=== PATIENT | female | born 1995 | race Caucasian/White ===

== ENCOUNTER 2017-05-06 15:33 | Emergency (ER) | payer OTHER ==
[2017-05-06 18:00] LABS: BILIRUBIN NEGATIVE (NEGATIVE); BLOOD TRACE-INTACT Ery/uL (NEGATIVE); CLARITY CLEAR (CLEAR); COLOR YELLOW (YELLOW); GLUCOSE (U) NORMAL (NORMAL); KETONE (U) NEGATIVE (NEGATIVE); LEUKOCYTES NEGATIVE Leu/uL (NEGATIVE); NITRITE NEGATIVE (NEGATIVE); PROTEIN NEGATIVE (NEGATIVE); SPECIFIC GRAVITY 1.015 (1.001-1.030); UROBILINOGEN 0.2 mg/dL (0.2-1.0)
[2017-05-06 18:09] LABS: BACTERIA TRACE; URINARY WBC RARE
[2017-05-06 18:17] LABS: BASOPHIL 0.3 % (0-2); EOSINOPHIL 0.5 % (0-5); HCT 41.3 % (37.0-47.0); HGB 14.3 g/dl (12.5-16.0); MCH 30.2 pg (25.0-31.0); MCHC 34.6 g/dL (32.0-36.0); MCV 87.1 fL (78.0-100.0); MONOCYTE 5.3 % (0-12); NEUTROPHIL 73.9 % (41-80); PLT 297 K/uL (150-400); RBC 4.74 M/uL (4.20-5.40); RDW 12.4 % (11.5-14.0); WBC 9.9 K/uL (4.0-10.5)
[2017-05-06 18:22] LABS: ALBUMIN 4.2 g/dL (3.5-5.0); BILIRUBIN - TOTAL 0.6 mg/dL (0.1-1.0); CREATININE 0.7 mg/dL (0.5-1.0); GLOBULIN (CALCULATION) 3.5 g/dL (2.2-4.2); POTASSIUM 3.9 mmol/L (3.5-5.1); TOTAL PROTEIN 7.7 g/dL (6.4-8.3)
== END 2017-05-06 19:47 | disposition home or self-care (01) ==
LOC: FER 15:33
PROVIDERS: Internal Medicine
DX: R51 Headache (principal); R20.2 Paresthesia of skin; Z88.1 Allergy status to other antibiotic agents; Z88.5 Allergy status to narcotic agent; Z79.84 Long term (current) use of oral hypoglycemic drugs
CPT/HCPCS: 36415; 70450; 80053; 81001; 84703; 85025; J1885; J2765

== ENCOUNTER 2021-01-08 12:01 | Emergency (ER) | payer OTHER ==
[~2021-01-08 12:01] MED LIST: FIORICET1 EACH PO; FLEXERIL10 MG PO; IBUPROFEN800 M1 PO; IBUPROFEN800 MG PO; LIBRAX CAPSULE1 EACH PO; MEDROL 4MG DOSEP4 MG PO; METRONIDAZOLE500 MG PO; MOTRIN600 MG PO; NORCO 5-325 TA1 EACH PO; PROZAC20 MG PO; ZOFRAN ODT4 MG PO/SL; ZOFRAN4 MG PO; ZYRTEC10 M3 PO; mirena iud
[2021-01-08 14:43] LABS: BASOPHIL 0.8 % (0-2); EOSINOPHIL 0.8 % (0-5); HCT 41.4 % (37.0-47.0); HGB 13.8 g/dl (12.5-16.0); LYMPHOCYTE 41.2 % (15-48); MCH 28.3 pg (25.0-31.0); MCHC 33.3 g/dL (32.0-36.0); MCV 84.8 fL (78.0-100.0); MONOCYTE 4.7 % (0-12); MPV 10.2 fL (6.0-9.5); NEUTROPHIL 52.3 % (41-80); NRBC 0; PLT 292 K/uL (150-400); RBC 4.88 M/uL (4.20-5.40); RDW 13.1 % (11.5-14.0); WBC 5.1 K/uL (4.0-10.5)
[2021-01-08 14:56] LABS: BILIRUBIN NEGATIVE (NEGATIVE); BLOOD NEGATIVE Ery/uL (NEGATIVE); CLARITY CLEAR (CLEAR); COLOR YELLOW (YELLOW); GLUCOSE (U) NORMAL (NORMAL); LEUKOCYTES TRACE Leu/uL (NEGATIVE); NITRITE NEGATIVE (NEGATIVE); PROTEIN NEGATIVE (NEGATIVE); SPECIFIC GRAVITY 1.025 (1.001-1.030); UROBILINOGEN 0.2 mg/dL (0.2-1.0); pH 6.5 (5.0-9.0)
[2021-01-08 15:00] LABS: BUN/CREAT RATIO (CALC) 18.8 RATIO; CREATININE 0.69 mg/dL (0.51-0.95); POTASSIUM 3.6 mmol/L (3.5-5.1)
[2021-01-08 15:06] LABS: BACTERIA 1+
[2021-01-08] MEDS ORDERED: IBUPROFEN800 MG PO (17:33)
== END 2021-01-08 17:36 | disposition home or self-care (01) ==
LOC: FER 12:01
PROVIDERS: Nurse Practitioner
DX: H53.8 Other visual disturbances (principal); R51.9 Headache, unspecified; R42 Dizziness and giddiness; F17.290 Nicotine dependence, other tobacco product, uncomplicated; Z86.69 Personal history of other diseases of the nervous system and sense organs; Z88.5 Allergy status to narcotic agent; Z88.6 Allergy status to analgesic agent; Z88.1 Allergy status to other antibiotic agents
CPT/HCPCS: 36415; 70450; 80048; 81001; 85025; 93005

== ENCOUNTER 2021-02-12 10:54 | Emergency (ER) | payer OTHER ==
[2021-02-12 14:37] LABS: BILIRUBIN NEGATIVE (NEGATIVE); BLOOD NEGATIVE Ery/uL (NEGATIVE); CLARITY CLEAR (CLEAR); COLOR YELLOW (YELLOW); GLUCOSE (U) NORMAL (NORMAL); LEUKOCYTES TRACE Leu/uL (NEGATIVE); NITRITE NEGATIVE (NEGATIVE); PROTEIN TRACE (LOW) mg/dL (NEGATIVE); SPECIFIC GRAVITY 1.025 (1.001-1.030); UROBILINOGEN 0.2 mg/dL (0.2-1.0)
[2021-02-12 14:38] LABS: BASOPHIL 0.7 % (0-2); EOSINOPHIL 0.9 % (0-5); HCT 41.5 % (37.0-47.0); HGB 13.8 g/dl (12.5-16.0); LYMPHOCYTE 34.4 % (15-48); MCH 28.9 pg (25.0-31.0); MCHC 33.3 g/dL (32.0-36.0); MCV 86.8 fL (78.0-100.0); MONOCYTE 7.2 % (0-12); MPV 10.8 fL (6.0-9.5); NEUTROPHIL 56.6 % (41-80); NRBC 0; PLT 274 K/uL (150-400); RBC 4.78 M/uL (4.20-5.40); RDW 13.3 % (11.5-14.0); WBC 5.7 K/uL (4.0-10.5)
[2021-02-12 14:51] LABS: ALBUMIN 4.2 g/dL (3.4-5.0); BILIRUBIN - TOTAL 1.3 mg/dL (0.2-1.0); BUN/CREAT RATIO (CALC) 9.7 RATIO; CREATININE 0.72 mg/dL (0.51-0.95); GLOBULIN (CALCULATION) 4.3 g/dL; TOTAL PROTEIN 8.5 g/dL (6.4-8.2)
[2021-02-12 14:51] LABS: BACTERIA 1+; URINARY WBC 20-50
[2021-02-12] MEDS ORDERED: KEFLEX250 MG PO (21:39)
[2021-02-12] MEDS ORDERED: PERCOCET 5-3251 EACH PO (21:39)
[2021-02-12] MEDS ORDERED: ZOFRAN4 M1 PO (21:39)
[2021-02-12] MEDS ORDERED: AUGMENTIN 875-1 EACH PO (21:49)
== END 2021-02-12 22:10 | disposition home or self-care (01) ==
LOC: FER 10:54
PROVIDERS: Emergency Medicine
DX: N39.0 Urinary tract infection, site not specified (principal); E87.6 Hypokalemia; F17.200 Nicotine dependence, unspecified, uncomplicated; Z90.49 Acquired absence of other specified parts of digestive tract; Z88.5 Allergy status to narcotic agent; Z88.1 Allergy status to other antibiotic agents
CPT/HCPCS: 36415; 76830; 80053; 81001; 83690; 85025; 87088; J1170; J2405; J7030; Q9967

== ENCOUNTER 2021-04-10 10:37 | Emergency (ER) | payer OTHER ==
[~2021-04-10 10:37] MED LIST changes: +AUGMENTIN 875-1 EACH PO; +KEFLEX250 MG PO; +PERCOCET 5-3251 EACH PO; +ZOFRAN4 M1 PO
[2021-04-10 12:26] LABS: CORONAVIRUS 2019 SARS-COV-2 NEGATIVE (NEGATIVE); INFLUENZA A NAA NEGATIVE (NEGATIVE)
== END 2021-04-10 15:31 | disposition left against medical advice (07) ==
LOC: FER 10:37
PROVIDERS: Internal Medicine
DX: Z53.8 Procedure and treatment not carried out for other reasons (principal)
CPT/HCPCS: U0002

== ENCOUNTER 2021-06-19 22:41 | Emergency (ER) | payer OTHER ==
[2021-06-19 22:58] LABS: BASOPHIL 0.4 % (0-2); EOSINOPHIL 1.1 % (0-5); HCT 39.6 % (37.0-47.0); HGB 13.4 g/dl (12.5-16.0); LYMPHOCYTE 39.7 % (15-48); MCH 29.8 pg (25.0-31.0); MCHC 33.8 g/dL (32.0-36.0); MCV 88.2 fL (78.0-100.0); MONOCYTE 5.9 % (0-12); MPV 10.2 fL (6.0-9.5); NEUTROPHIL 52.8 % (41-80); NRBC 0; PLT 304 K/uL (150-400); RBC 4.49 M/uL (4.20-5.40); RDW 12.3 % (11.5-14.0); WBC 7.1 K/uL (4.0-10.5)
[2021-06-19 23:21] LABS: ALBUMIN 3.8 g/dL (3.4-5.0); BILIRUBIN - TOTAL 0.5 mg/dL (0.2-1.0); BUN/CREAT RATIO (CALC) 17.2 RATIO; CREATININE 0.64 mg/dL (0.51-0.95); GLOBULIN (CALCULATION) 3.7 g/dL; POTASSIUM 3.7 mmol/L (3.5-5.1); TOTAL PROTEIN 7.5 g/dL (6.4-8.2)
== END 2021-06-20 00:05 | disposition home or self-care (01) ==
LOC: FER 22:41
PROVIDERS: Emergency Medicine
DX: R07.89 Other chest pain (principal); F17.200 Nicotine dependence, unspecified, uncomplicated; Z88.6 Allergy status to analgesic agent; Z88.1 Allergy status to other antibiotic agents
CPT/HCPCS: 36415; 71045; 80053; 84484; 85025; 85379; 93005

== ENCOUNTER 2021-07-31 21:48 | Day surgery (SDCO) | payer OTHER ==
[~2021-07-31] VITALS: Ht 165.1 cm; Wt 87.1 kg
[2021-07-31 23:41] LABS: BASOPHIL 0.8 % (0-2); EOSINOPHIL 1.3 % (0-5); HCT 40.5 % (37.0-47.0); HGB 13.8 g/dl (12.5-16.0); MCH 30.1 pg (25.0-31.0); MCHC 34.1 g/dL (32.0-36.0); MCV 88.4 fL (78.0-100.0); MPV 11.2 fL (6.0-9.5); NEUTROPHIL 54.7 % (41-80); NRBC 0; PLT 223 K/uL (150-400); RBC 4.58 M/uL (4.20-5.40); RDW 12.3 % (11.5-14.0); WBC 9.5 K/uL (4.0-10.5)
[2021-08-01 00:07] LABS: LACTIC ACID 0.9 mmol/L (0.4-1.9)
[2021-08-01 00:13] LABS: ALBUMIN 3.8 g/dL (3.4-5.0); BILIRUBIN - TOTAL 0.4 mg/dL (0.2-1.0); BUN/CREAT RATIO (CALC) 21.9 RATIO; CREATININE 0.64 mg/dL (0.51-0.95); GLOBULIN (CALCULATION) 3.8 g/dL; POTASSIUM 3.9 mmol/L (3.5-5.1); TOTAL PROTEIN 7.6 g/dL (6.4-8.2)
[2021-08-01 00:35] LABS: BILIRUBIN NEGATIVE (NEGATIVE); BLOOD NEGATIVE Ery/uL (NEGATIVE); CLARITY CLEAR (CLEAR); COLOR YELLOW (YELLOW); GLUCOSE (U) NORMAL (NORMAL); LEUKOCYTES NEGATIVE Leu/uL (NEGATIVE); NITRITE NEGATIVE (NEGATIVE); PROTEIN NEGATIVE (NEGATIVE); SPECIFIC GRAVITY 1.025 (1.001-1.030); UROBILINOGEN 0.2 mg/dL (0.2-1.0)
[2021-08-01] MEDS ORDERED: ZOLOFT50 MG PO (14:18)
[2021-08-01] MEDS ORDERED: ABILIFY10 MG PO (14:18)
[2021-08-01] MEDS ORDERED: TOPAMAX50 MG PO (14:19)
[2021-08-01] MEDS ORDERED: BACLOFEN 10MG T10 MG PO (14:19)
[2021-08-02 09:37] LABS: HCT 37.4 % (37.0-47.0); HGB 12.1 g/dl (12.5-16.0); MCH 29.7 pg (25.0-31.0); MCHC 32.4 g/dL (32.0-36.0); MCV 91.9 fL (78.0-100.0); MPV 11.7 fL (6.0-9.5); RBC 4.07 M/uL (4.20-5.40); RDW 12.4 % (11.5-14.0); WBC 4.9 K/uL (4.0-10.5)
--- NOTE | 2021-08-02 14:29 | NUR ---
08/02/21 Ms. Rubin lives at home with her 1 and 7 y/o dons. She is employed as a [employer] with [employer]. Ms. Rubin is able to "get by" financially. - She is followed by her PCP, Laurel Mcadams, and Patricia for treatment of Bipolar disease. Ms. Rubin denies suicidal ideations, intentions, or attempts. - Ms. Rubin is [place]. She currently does not have hearing aids. [facility] afford one pair for her and will not pay for additional pairs. - Resources provided: [place] [employer] and [place], crisis hotline, [facility], and [facility].
[2021-08-02] MEDS ORDERED: BENTYL10 MG PO (17:01)
[2021-08-02] MEDS ORDERED: ZOFRAN4 M1 PO (17:01)
[2021-08-02] MEDS ORDERED: MIRALAX 238GM238 GM PO (17:02)
[2021-08-02] MEDS ORDERED: PERCOCET 5-3251 EACH PO (17:03)
== END 2021-08-02 17:30 | disposition home or self-care (01) ==
LOC: FER 21:48 → FMS 08-01 08:08
PROVIDERS: Emergency Medicine Emergency Medical Services; ADMIT Internal Medicine
DX: K92.1 Melena (principal); K58.2 Mixed irritable bowel syndrome; N93.9 Abnormal uterine and vaginal bleeding, unspecified; F31.9 Bipolar disorder, unspecified; R10.84 Generalized abdominal pain; R11.0 Nausea; F41.8 Other specified anxiety disorders; M54.50 Low back pain, unspecified; K60.2 Anal fissure, unspecified; R14.0 Abdominal distension (gaseous); R53.1 Weakness; R53.83 Other fatigue; Z90.710 Acquired absence of both cervix and uterus; Z20.822 Contact with and (suspected) exposure to COVID-19
CPT/HCPCS: 36415; 71275; 76830; 80053; 81003; 83605; 83690; 84145; 84443; 85025; 85379; G0378; J1170; J2405; J2550; J7030; Q9967; U0002